=== PATIENT | male | born 1980 | race Caucasian/White ===

== ENCOUNTER 2018-08-15 17:18 | Emergency (ER) | payer BC ==
[2018-08-15 17:29] VITALS: BP 127/76
--- NOTE | 2018-08-15 17:53 | UC ---
Abdominal Pain Male HPI - HPI Summary HPI Summary: 37-year-old male comes in with a chief complaint of abdominal pain. Started last night around 10 PM. Patient last ate at 7 PM yesterday. He is not sure if the food causes the discomfort. Pain is primarily periumbilical but it does involve the whole upper abdomen. Pain is worse is moderate to severe. Movement makes the pain worse. He has had some chills. Has not measured any fevers. He has had 3 episodes of watery diarrhea today. He did drink some water earlier on did not throw it up but felt like it did not go anywhere in his abdomen. No prior surgeries. No dysuria or urinary symptoms. - History of Current Complaint Chief Complaint: UCAbdominalPain Stated Complaint: ABD PAIN Time Seen by Provider: 08/15/18 17:43 Pain Intensity: 8 - Allergies/Home Medications Allergies/Adverse Reactions: Allergies Allergy/AdvReac Type Severity Reaction Status Date / Time No Known Allergies Allergy Verified 08/15/18 17:29 PMH/Surg Hx/FS Hx/Imm Hx Previously Healthy: Yes - Surgical History Surgical History: Yes Surgery Procedure, Year, and Place: 2008 testicle surgery - Family History Known Family History: Positive: Non-Contributory - Social History Alcohol Use: Rare Substance Use Type: None Smoking Status (MU): Never Smoked Tobacco Review of Systems All Other Systems Reviewed And Are Negative: Yes Constitutional: Positive: Chills Skin: Positive: Negative Eyes: Positive: Negative ENT: Positive: Negative Respiratory: Positive: Negative Cardiovascular: Positive: Negative Gastrointestinal: Positive: Abdominal Pain, Diarrhea, Nausea Genitourinary: Positive: Negative Motor: Positive: Negative Neurovascular: Positive: Negative Musculoskeletal: Positive: Negative Neurological: Positive: Negative Psychological: Positive: Negative Is Patient Immunocompromised?: No Physical Exam Triage Information Reviewed: Yes Appearance: Well-Nourished, Ill-Appearing - MILD, Pain Distress - MILD AT REST, WORSE WITH MOVEMENT. Vital Signs: Initial Vital Signs Temp 99.7 F 08/15/18 17:24 Pulse 98 08/15/18 17:24 Resp 18 08/15/18 17:24 BP 127/76 08/15/18 17:24 Pulse Ox 100 08/15/18 17:24 Vital Signs Reviewed: Yes Eye Exam: Normal Eyes: Positive: Conjunctiva Clear ENT: Positive: Pharynx normal Neck exam: Normal Neck: Positive: Supple Respiratory: Positive: Lungs clear, Normal breath sounds, No respiratory distress Cardiovascular: Positive: RRR Abdomen Description: Positive: Guarding, Other: - TENDER TO PALPATION DIFFUSELY Bowel Sounds: Positive: Hypoactive Musculoskeletal Exam: Normal Musculoskeletal: Positive: Strength Intact, ROM Intact Neurological Exam: Normal Neurological: Positive: Alert, Muscle Tone Normal Psychological Exam: Normal Psychological: Positive: Age Appropriate Behavior Skin Exam: Normal Abd Pain Male Course/Dx - Course Course Of Treatment: DUE TO THE SEVERITY OF THE PAIN AND NEED FOR REAL TIME LABS AND IV PAIN MEDICATION, I RECOMMENDED FURTHER EVALUATION IN THE EMERGENCY DEPARTMENT. PATIENT PREFERS TO GO BY POV. - Differential Dx/Clinical Impression Provider Diagnosis: Abdominal pain Discharge - Sign-Out/Discharge Documenting (check all that apply): Patient Departure All imaging exams completed and their final reports reviewed: No Studies - Discharge Plan Condition: Stable Disposition: HOME-RECOMMEND TO ED Patient Education Materials: Acute Abdominal Pain (ED) Referrals: Ronak Rosa MD [Primary Care Provider] - Additional Instructions: GO DIRECTLY TO THE EMERGENCY DEPARTMENT FOR FURTHER EVALUATION OF YOUR ABDOMINAL PAIN - Billing Disposition and Condition Condition: STABLE Disposition: Home-Recommend to ED
== END 2018-08-15 18:00 | disposition home health service (06) ==
LOC: UCEAST 17:18
DX: R10.9 Unspecified abdominal pain (principal)
CPT/HCPCS: 99212; G0463

== ENCOUNTER 2018-08-15 18:26 | Emergency (ER) | payer BC ==
[2018-08-15 20:54] VITALS: BP 124/75
== END 2018-08-15 23:08 | disposition left against medical advice (07) ==
LOC: ED 18:26
DX: R10.9 Unspecified abdominal pain (principal); Z53.21 Procedure and treatment not carried out due to patient leaving prior to being seen by health care provider

== ENCOUNTER 2018-08-16 08:08 | Emergency (ER) | payer BC ==
[2018-08-16 08:19] VITALS: BP 124/76
--- NOTE | 2018-08-16 08:42 | UC ---
Abdominal Pain Male HPI - HPI Summary HPI Summary: 37-year-old male with upper abdominal pain since evening after eating. He was seen at this facility on night and referred to the emergency room. He stated that he waited in the emergency room for approximately 5 hours and then left without being seen. He states the pain today is no worse but it' s no better. The pain started in the upper abdomen and has not moved from there. He's also had 3 bouts of diarrhea in the past 24 hours. No vomiting. No fever or chills. He denies drinking alcohol and no illicit drug use. He has had no appetite since and states he has noticed his heart rate is mildly elevated because he has been unable to eat or drink anything. - History of Current Complaint Chief Complaint: UCAbdominalPain Stated Complaint: ABD PAIN Time Seen by Provider: 08/16/18 08:18 Hx Obtained From: Patient Onset/Duration: Gradual Onset - Gradual onset following the meal on evening. Timing: Constant Severity Initially: Moderate Severity Currently: Moderate Pain Intensity: 5 Location: Other - Upper abdominal pain mostly in the epigastric area. Radiates: No Character: Aching, Dull Aggravating Factor(s): Movement Alleviating Factor(s): Nothing Associated Signs And Symptoms: Positive: Decreased Appetite, Nausea, Diarrhea. Negative: Fever, Chest Pain, Back Pain, Constipation, Urinary Symptoms, Vomiting , Penile Discharge - Risk Factors Testicular Torsion: Negative Cardiac Risk Factors: Negative - No family members with a history of heart problems before the age 50. - Allergies/Home Medications Allergies/Adverse Reactions: Allergies Allergy/AdvReac Type Severity Reaction Status Date / Time No Known Allergies Allergy Verified 08/16/18 08:55 Home Medications: Home Medications Ibuprofen TAB* [Advil TAB*] 200 mg PO Q6H PRN 08/16/18 [History Confirmed ] PMH/Surg Hx/FS Hx/Imm Hx Previously Healthy: Yes - Surgical History Surgical History: Yes Surgery Procedure, Year, and Place: 2007 testicle surgery - Family History Known Family History: Positive: None, Non-Contributory - Social History Alcohol Use: Rare Substance Use Type: None Smoking Status (MU): Never Smoked Tobacco Review of Systems All Other Systems Reviewed And Are Negative: Yes Respiratory: Negative: Shortness Of Breath, Cough Cardiovascular: Positive: Other - Patient feels his heart rate is mildly elevated over the past couple of days. Gastrointestinal: Positive: Abdominal Pain - Abdomen pain mostly in the epigastric area but the entire upper abdomen., Diarrhea - 3 bouts of diarrhea in the past 24 hours the last one being this morning. He describes as watery. He denies any recent travel outside the [place]., Nausea. Negative: Vomiting Genitourinary: Positive: Negative Motor: Positive: Negative Neurovascular: Positive: Negative Musculoskeletal: Positive: Negative Neurological: Positive: Negative Psychological: Positive: Negative Is Patient Immunocompromised?: No Physical Exam Triage Information Reviewed: Yes Appearance: No Pain Distress, Well-Nourished - Mildly pale in appearance however skin is warm and dry. Vital Signs: Initial Vital Signs Temp 97.9 F 08/16/18 08:15 Pulse 93 08/16/18 08:15 Resp 16 08/16/18 08:15 BP 124/76 08/16/18 08:15 Pulse Ox 98 08/16/18 08:15 Vital Signs Reviewed: Yes Eye Exam: Normal ENT Exam: Normal Neck exam: Normal Neck: Positive: Supple, Nontender, No Lymphadenopathy Respiratory Exam: Normal Respiratory: Positive: Other: - No chest pain on deep inspiration Cardiovascular Exam: Normal Cardiovascular: Positive: RRR, No Murmur, Pulses Normal, Brisk Capillary Refill - Good peripheral pulses neuro sensation capillary refill. After tenderness. Abdomen Description: Positive: No Organomegaly, Soft, Distended - mildly Distended. Negative: CVA Tenderness (R), CVA Tenderness (L) Bowel Sounds: Positive: Present Male Genital Exam: Negative: Inguinal Tenderness, Scrotum Tenderness (R), Scrotum Tenderness (L), Testicular Tenderness (R), Testicular Tenderness (L) Musculoskeletal Exam: Normal Neurological Exam: Normal Psychological Exam: Normal Skin Exam: Normal - Warm and dry. Abd Pain Male Course/Dx - Course Course Of Treatment: The patient continues to have the abdominal pain since night and is still quite tender in the upper abdomen more in the epigastric area and left upper quadrant. And I feel he needs further evaluation in the emergency room. He is agreeable to this and prefers to drive himself by private car. - Differential Dx/Clinical Impression Provider Diagnosis: Abdominal pain Discharge - Sign-Out/Discharge Documenting (check all that apply): Patient Departure All imaging exams completed and their final reports reviewed: No Studies - Discharge Plan Condition: Fair Disposition: HOME-RECOMMEND TO ED Referrals: Ronak Rosa MD [Primary Care Provider] - Additional Instructions: After the evaluation by the nurse practitioner, it is recommended that you go to the emergency room for further evaluation of the abdominal pain where you should receive additional testing that can be completed in the emergency department. It is recommended that you go directly to the emergency department. This evaluation may include blood work or imaging. This testing will be directed and decided by the provider that evaluation with the emergency department. If pain becomes worse, you feel lightheaded of uncontrolled vomiting, review have any other concerns while you dictating to the emergency room please jawbone puller and call 911. - Billing Disposition and Condition Condition: FAIR Disposition: Home-Recommend to ED - Attestation Statements Provider Attestation: I was available for consult. This patient was seen by the VIRAL. The patient was not presented to, seen by, or examined by me. -Garcia
== END 2018-08-16 08:34 | disposition home health service (06) ==
LOC: UCEAST 08:08
DX: R10.10 Upper abdominal pain, unspecified (principal)
CPT/HCPCS: 99212; G0463

== ENCOUNTER → 2018-08-16 08:51 | Emergency (ER) | payer BC ==
[~2018-08-16 08:51] MED LIST: Famotidine TAB* 20 MG PO ONE; NS 0.9% 1000 ML** 1,000 ML IV ONE; Ondansetron TAB* 4 MG PO ONE
--- OUTSIDE RECORDS SUMMARY | 2018-08-16 09:02 | XMS REPORT | Continuity of Care Document ---
:1980 External Reference #:[id number] Author Name Tami Machado Care Team Providers Name Role Phone Ronak Rosa III, MD Primary Care Physician Unavailable Payers Date Identification Numbers Payment Provider Subscriber Effective: 2018 Policy Number: [id number] [employer] Margarito Chavez Infalvi PayID: [id number] [address] [place] [address] Expires: 2013 Policy Number: [id number] [facility] [address] Margarito D Infalvi Group Number: [id number] [address] PayID: [id number] [place] [address] Advance Directives Description No Information Available Problems Date Description Provider Status Onset: 04/02/2012 Chest pain Ronak Rosa M.D. Active Family History Description No Information Available Social History Type Date Description Comments Sex Unknown Marital Status Occupation Artist ETOH Use Occasionally consumes alcohol Tobacco Use Start: Unknown Patient has never smoked Smoking Status Reviewed: 08/05/18 Patient has never smoked Exercise Exercises regularly gym 3x/week for Type/Frequency cardio, some weights Allergies, Adverse Reactions, Alerts Date Description Reaction Status Severity Comments 03/12/2012 Amoxicillin unknown Active as a child Medications Medication Date Status Form Strength Qnty SIG Indications Ordering Provider Ibuprofen 200 0 Active Tablets 200mg 400-600mg Unknown 000 every 6 hours as needed for pain. Sumatriptan 0 Active Tablets 100mg prn Unknown Succinate 000 migraine No Active Hx Unknown Medications 012 - 019 Immunizations CPT Code Status Date Vaccine Lot # [id number] Given 05/20/2006 Tetanus And Diptheria (Td) For Adult Use Preservative Free Vital Signs Date Vital Result Comment 08/05/2018 2:07pm Height 72 inches 6'0" Weight 178.00 lb Heart Rate 67 /min BP Systolic Sitting 125 mmHg BP Diastolic Sitting 74 mmHg O2 % BldC Oximetry 96 % BMI (Body Mass Index) 24.1 kg/m2 07/01/2018 10:18am Height 72 inches 6'0" Weight 178.50 lb Heart Rate 64 /min BP Systolic 110 mmHg BP Diastolic 70 mmHg Body Temperature 98.2 F O2 % BldC Oximetry 96 % BMI (Body Mass Index) 24.2 kg/m2 01/01/2013 10:47am Height 73.5 inches 6'1.50" Weight 164.50 lb Heart Rate 56 /min BP Systolic Sitting 118 mmHg BP Diastolic Sitting 64 mmHg BMI (Body Mass Index) 21.4 kg/m2 04/02/2012 9:59am Height 73.25 inches 6'1.25" Weight 157.00 lb Heart Rate 60 /min BP Systolic Sitting 104 mmHg BP Diastolic Sitting 70 mmHg BMI (Body Mass Index) 20.6 kg/m2 Results Test Date Facility Test Result H/L Range Note Laboratory test 07/14/2018 [facility] C Reactive < 1.00 mg/L N <8.01 [address] [place] [address] [phone] Erythrocyte Sed Rate 2 mm/Hr N 0-15 2 Connective Tissue 07/14/2018 [facility] Anti-Nuclear 1.1 U High [address] [place] [address] [phone] Cyclic Citrullinated Peptide <15.6 U 4 Interpretation See Comment 5 CBC Auto Diff 07/14/2018 [facility] White Blood 5.2 10^3/uL N 3.5-10.[address] [place] [address] [phone] Red Blood Count 5.29 10^6/uL N 4.00-5.40 Hemoglobin 15.1 g/dL N 14.0-18.0 Hematocrit 45 % N 42-52 Mean Corpuscular Volume 86 fL N 80-94 Mean Corpuscular Hemoglobin 29 pg N 27-31 Mean Corpuscular HGB Conc 33 g/dL N 31-36 Red Cell Distribution Width 14 % N 10.5-15 Platelet Count 255 10^3/uL N 150-450 Mean Platelet Volume 8.3 fL N 7.4-10.4 Abs Neutrophils 3.1 10^3/uL N 1.5-7.7 Abs Lymphocytes 1.5 10^3/uL N 1.0-4.8 Abs Monocytes 0.4 10^3/uL N 0-0.8 Abs Eosinophils 0.1 10^3/uL N 0-0.6 Abs Basophils 0.1 10^3/uL N 0-0.2 Abs Nucleated RBC 0 10^3/uL Granulocyte % 59.2 % Lymphocyte % 29.7 % Monocyte % 6.8 % Eosinophil % 2.4 % Basophil % 1.9 % Nucleated Red Blood Cells % 0 Lipid Profile 07/14/2018 [facility] Triglycerides 44 mg/dL 6 (Trig/Chol/HDL) [address] [place] [address] [phone] Cholesterol 171 mg/dL 7 HDL Cholesterol 69.1 mg/dL 8 LDL Cholesterol 93 mg/dL 9 Comp Metabolic Panel 07/14/2018 [facility] Sodium 138 mmol/L N 135-[address] [place] [address] [phone] Potassium 4.1 mmol/L N 3.5-5.0 Chloride 102 mmol/L N 101-111 Co2 Carbon Dioxide 30 mmol/L N 22-32 Anion Gap 6 mmol/L N 2-11 Glucose 85 mg/dL N 70-100 Blood Urea Nitrogen 10 mg/dL N 6-24 Creatinine 0.88 mg/dL N 0.67-1.17 BUN/Creatinine Ratio 11.4 N 8-20 Calcium 9.5 mg/dL N 8.6-10.3 Total Protein 6.8 g/dL N 6.4-8.9 Albumin 4.3 g/dL N 3.2-5.2 Globulin 2.5 g/dL N 2-4 Albumin/Globulin Ratio 1.7 N 1-3 Total Bilirubin 0.90 mg/dL N 0.2-1.0 Alkaline Phosphatase 57 U/L N 34-104 Alt 21 U/L N 7-52 Ast 22 U/L N 13-39 Egfr Non- 97.4 >60 Egfr 117.9 >60 10 1 FASTING 2 Test Performed by: [facility] [address] [place], [place] [address] Mika Bello M.D. Director of Laboratory 3 Interpretation: Weak Positive (1.1-2.9) REFERENCE VALUE <=1.0 (Negative) 4 REFERENCE VALUE <20.0 (Negative) 5 Tests for antibodies to dsDNA and CLARE antigens are not performed automatically unless the BARB result is > or= 3.0 U. Studies performed at [facility] indicate that positive BARB results <3.0 U are rarely accompanied by positive second order tests. Test Performed by: [facility] [employer] [address] [place] [address] 6 Desirable: <150 Borderline High: 150-199 High: 200-499 Very High: >500 7 Desirable: <200 Borderline High: 200-239 High: >239 8 Low: <40 Desirable: 40-60 High: >60 9 Desirable: <100 Near Optimal: 100-129 Borderline High: 130-159 High: 160-189 Very High: >189 10 Because ethnic data is not always readily available, this report includes an eGFR for both -Americans and non- Americans. The National Kidney Disease Education Program (NKDEP) does not endorse the use of the MDRD equation for patients that are not between the ages of 18 and 70, are , have extremes of body size, muscle mass, or nutritional status, or are non- or non-. According to the National Kidney Foundation, irrespective of diagnosis, the stage of the disease is based on the level of kidney function: Stage Description GFR(mL/min/1.73 m(2)) 1 Kidney damage with normal or decreased GFR 90 2 Kidney damage with mild decrease in GFR 60-89 3 Moderate decrease in GFR 30-59 4 Severe decrease in GFR 15-29 5 Kidney failure <15 (or dialysis) Procedures Date Code Description Status 03/12/2012 71705 EKG Tracing & Interpretation Completed Encounters Type Date Location Provider Dx Diagnosis Office Visit 07/01/2018 [facility] Internal Ronak Rosa, Z00.00 Encntr for 10:20a Medicine - [facility] medical exam w/o abnormal findings R07.9 Chest pain, unspecified Z13.220 Encounter for screening for lipoid disorders Z13.1 Encounter for screening for diabetes mellitus G43.109 Migraine with aura, not intractable, w/o status migrainosus Office Visit 01/01/2013 10:40a [facility] Internal Ronak Chen 729.5 Pain In Limb Medicine Blade Rosa M.D. [place] Office Visit 04/02/2012 10:00a [facility] Ronak Chen V70.0 Examination Medicine - [facility] Routine AT [facility] 786.50 Pain Chest Unspec Office Visit 03/12/2012 10:15a [facility] Johnathan Arturo 786.50 [facility] [place], Unspec FACC, FASNC Plan of Treatment Future Appointment(s):09/10/2018 11:00 am - Willis Marks M.D. at [facility]08/05/2018 - Ronak Rosa M.D.N50.82 Scrotal painNew Xrays: US Testicular, Ordered: 08/05/18Comments:(+) hx varicocele surgery in 2007 with chronic, occ L sided scrotal pains, usually lasting just a few days. Pt with 3 weeks of increased pain sx now, variable intensity. Tender over epididymal area with no definite swelling/mass. Scrotal ultrasound and urology re-eval advisedReferral:Aneudy Ohara MD, Urology
--- NOTE | 2018-08-16 09:16 | ED ---
Abdominal Pain/Male - HPI Summary HPI Summary: Patient is a 37-year-old male who presents emergency department for upper abdominal pain 3 days. Patient describes pain as a pressure and bloating sensation with associated nausea and decreased appetite. Has no past medical history. No surgical history. Does not take any medications on a daily basis. Patient was seen in urgent care 2 days in a row is referred to the emergency Department further evaluation. Patient denies excessive alcohol use. He does note he patient takes ibuprofen for some pains. Symptoms are moderate in severity. No current modifying factors. Patient otherwise denies fever, chills , chest pain, shortness of breath, vomiting, diarrhea, constipation, dysuria, hematuria. - History of Current Complaint Chief Complaint: EDAbdPain Stated Complaint: ABD PAIN PER PT Time Seen by Provider: 08/16/18 09:06 Hx Obtained From: Patient Pain Intensity: 9 - Allergies/Home Medications Allergies/Adverse Reactions: Allergies Allergy/AdvReac Type Severity Reaction Status Date / Time No Known Allergies Allergy Verified 08/16/18 08:55 PMH/Surg Hx/FS Hx/Imm Hx Previously Healthy: Yes Endocrine/Hematology History: Denies: Hx Diabetes, Hx Thyroid Disease Cardiovascular History: Denies: Hx Congestive Heart Failure, Hx Hypertension, Hx Pacemaker/ICD, Other Cardiovascular Problems/Disorders Respiratory History: Denies: Hx Asthma, Hx Chronic Obstructive Pulmonary Disease (COPD), Other Respiratory Problems/Disorders GI History: Denies: Hx Ulcer - Surgical History Surgery Procedure, Year, and Place: 2007 testicle surgery Infectious Disease History: No Infectious Disease History: Denies: Hx Hepatitis, Hx Human Immunodeficiency Virus (HIV), Traveled Outside the [place] in Last 30 Days - Family History Known Family History: Positive: None, Non-Contributory - Social History Occupation: Works From/At Home Lives: With Family Alcohol Use: Rare Substance Use Type: Reports: None Smoking Status (MU): Never Smoked Tobacco Review of Systems Constitutional: Negative Negative: Fever, Chills Eyes: Negative ENT: Negative Cardiovascular: Negative Respiratory: Negative Positive: Abdominal Pain, Nausea. Negative: Vomiting, Diarrhea Genitourinary: Negative Negative: dysuria, flank pain Neurological: Negative All Other Systems Reviewed And Are Negative: Yes Physical Exam Triage Information Reviewed: Yes Vital Signs On Initial Exam: Initial Vitals Temp Pulse Resp BP Pulse Ox 97.5 F 99 18 136/92 99 08/16/18 08:54 08/16/18 08:54 08/16/18 08:54 08/16/18 08:54 08/16/18 08:54 Vital Signs Reviewed: Yes Appearance: Positive: Well-Appearing - Pt. sitting on bed in NAD. Skin: Positive: Warm, Dry Head/Face: Positive: Normal Head/Face Inspection Eyes: Positive: Normal, EOMI Neck: Positive: Supple Respiratory/Lung Sounds: Positive: Clear to Auscultation, Breath Sounds Present Cardiovascular: Positive: Normal, RRR Abdomen Description: Positive: Other: - Abd. is soft with pain over epigastric region and LUQ. Negative Cadet sign.. Negative: CVA Tenderness (R), CVA Tenderness (L) Neurological: Positive: Normal, CN Intact II-III Psychiatric: Positive: Affect/Mood Appropriate Diagnostics - Vital Signs Vital Signs Temp Pulse Resp BP Pulse Ox 08/16/18 08:54 97.5 F 99 18 136/92 99 - Laboratory Result Diagrams: 08/16/18 09:20 08/16/18 09:20 Lab Statement: Any lab studies that have been ordered have been reviewed, and results considered in the medical decision making process. Abdominal Pain Male Course/Dx - Course Course Of Treatment: Patient presenting with epigastric abdominal pain, nausea and decreased appetite. He is afebrile with normal vital signs. Patient has a benign abdominal exam. Suspect gastritis, GERD, pancreatitis. Patient was given IV fluids for tachycardia and decreased oral intake. He was also given some Zofran and Pepcid. Labs are unremarkable other than a minimally elevated bilirubin. On reexamination patient is feeling a bit better. Suspect gastritis. Protonix prescribed. Advised patient he can take [id number] Tums, Maalox, etc. as needed for faster relief. Advised to avoid alcohol, caffeine, NSAIDs, acidic foods. Patient follow-up with family doctor if symptoms persist and return to the ER change or worsen. Patient understands and agrees with plan. - Diagnoses Differential Diagnosis/HQI/PQRI: Gall Bladder Disease, Hepatitis, Pancreatitis, Peptic Ulcer Disease Provider Diagnoses: Gastritis Discharge - Sign-Out/Discharge Documenting (check all that apply): Patient Departure Patient Received Moderate/Deep Sedation with Procedure: No - Discharge Plan Condition: Improved Disposition: HOME Prescriptions: Pantoprazole TAB * [Protonix TAB*] 40 mg PO DAILY #14 tab Patient Education Materials: Gastritis (ED), Diet for Stomach Ulcers and Gastritis (ED) Referrals: Ronak Rosa MD [Primary Care Provider] - Additional Instructions: Schedule a follow up appointment with your PCP if symptoms persist Take medication as directed Can also take over the counter Tums, Maalox, Rolaids, etc. to help relieve acute pain Avoid foods high in caffeine, fat, degrees, spice, acid, alcohol, anti- inflammatory such as ibuprofen Return to the ER symptoms change or worsen. - Billing Disposition and Condition Condition: IMPROVED Disposition: Home
[2018-08-16 09:24] VITALS: BP 129/85
[2018-08-16 09:38] LABS: ABS Basophils 0 10^3/ul (0-0.2); ABS Eosinophils 0.1 10^3/ul (0-0.6); ABS Lymphocytes 0.6 10^3/ul (1.0-4.8); ABS Monocytes 0.4 10^3/ul (0-0.8); ABS Neutrophils 6.5 10^3/ul (1.5-7.7); ABS Nucleated RBC 0 10^3/ul; Eosinophil % 0.9 %; Hematocrit 46 % (36-46); Hemoglobin 15.8 g/dL (14.0-18.0); Lymphocyte % 7.8 %; Mean Corpuscular HGB Conc 34 g/dL (31-36); Mean Corpuscular Hemoglobin 29 pg (27-31); Mean Corpuscular Volume 83 fL (80-94); Mean Platelet Volume 7.7 fL (7.4-10.4); Nucleated Red Blood Cells % 0; Platelet Count 248 10^3/uL (150-450); Red Blood Count 5.54 10^6 /uL (4.18-5.48); Red Cell Distribution Width 14 % (10.5-15); White Blood Count 7.6 10^3/uL (3.5-10.8)
[2018-08-16 09:43] LABS: Albumin 4.2 g/dL (3.2-5.2); Albumin/Globulin Ratio 1.7 (1-3); Calcium 9.1 mg/dL (8.6-10.3); EGFR African American 121.1 (>60); EGFR Non-African American 100.1 (>60); Globulin 2.5 g/dL (2-4); Total Bilirubin 1.7 mg/dL (0.2-1.0); Total Protein 6.7 g/dL (6.4-8.9)
== END | disposition home or self-care (01) ==
LOC: ED 08:51
DX: K29.70 Gastritis, unspecified, without bleeding (principal); R00.0 Tachycardia, unspecified
CPT/HCPCS: 36415; 80053; 83690; 85025; 96360; 96361; 99283; A9270-GY